=== PATIENT | female | born 1990 | race Caucasian/White ===

== ENCOUNTER 2022-11-14 06:00 | Inpatient (IN) | payer OTHER ==
[2022-11-14 06:30] LABS: Glucose,Whole Blood 123 mg/dL (70-110)
[2022-11-14] MEDS ORDERED: miSOPROStoL 200 MCG TAB PO PRN (06:33)
[2022-11-14] MEDS ORDERED: TRANEXAMIC 1,000 MG/100ML-NACL 1,000 MG in EMPTY BAG 1 BAG IV PRN (06:33)
[2022-11-14] MEDS ORDERED: CARBOPROST TROMETHAMINE 250 MCG/ML 1 ML AMP IM PRN (06:33)
[2022-11-14] MEDS ORDERED: OXYTOCIN 10 UNIT/ML 1 ML VIAL IM PRN (06:33)
[2022-11-14] MEDS ORDERED: LIDOCAINE 0.5% (PF) 5 MG/ML (50 ML SDV) SQ PRN (06:33)
[2022-11-14] MEDS ORDERED: TERBUTALINE 1 MG/ML VIAL SQ PRN (06:33)
[2022-11-14] MEDS ORDERED: METHYLERGONOVINE 0.2 MG/ML 1 ML AMP IM PRN (06:33)
[2022-11-14] MEDS: OXYTOCIN 30 UNITS/500 ML NS 30 UNIT in SALINE 1 500ML.BAG IV SCH (06:59)
[2022-11-14 07:00] LABS: Basophils % (A) 0 %; Eosinophils # (A) 0.2 k/uL (0-0.7); Eosinophils % (A) 2 %; HCT 35.3 % (34.0-46.0); HGB 12.3 gm/dL (11.4-16.0); Lymphocytes # (A) 2.6 k/uL (1.0-4.8); Lymphocytes % (A) 23 %; MCH 33.3 pg (25.0-35.0); MCHC 34.8 g/dL (31.0-37.0); MCV 95.8 fL (80.0-100.0); Mean Platelet Volume 8.1; Monocytes # (A) 0.7 k/uL (0-1.0); Monocytes % (A) 6 %; Neutrophils # (A) 7.8 k/uL (1.3-7.7); Neutrophils % (A) 68 %; Platelet Count 264 k/uL (150-450); RBC 3.68 m/uL (3.80-5.40); RDW 13.8 % (11.5-15.5); WBC 11.5 k/uL (3.8-10.6)
[2022-11-14] MEDS: LACTATED RINGERS 1,000 ML IV SCH ×3 (07:00→13:24)
--- NOTE | 2022-11-14 08:40 | P.HPOB ---
History of Present Illness H&P Date: 11/14/22 Chief Complaint: medical induction of labor for diet-controlled gestational diabetes This is a 32 year old G1P-0 at 40 weeks and 2 days (with EDC of 11/12/2022 by LMP c/w 6 weeks US) presenting to L&D for medical induction of labor for diet- controlled gestational diabetes. Blood sugars during the have been very well controlled with diet. Growth ultrasound at 33 weeks showed the fetus measuring in the 72%ile for gestational age. Maternal serologies: blood type A positive, antibody screen negative, rubella immune, VDRL non-reactive, HBsAg negative, HIV negative, GBS negative. Past Medical History Additional Past Medical History / Comment(s): heart murmur, IBS History of Any Multi-Drug Resistant Organisms: None Reported Additional Past Surgical History / Comment(s): Colonoscopy Past Anesthesia/Blood Transfusion Reactions: No Reported Reaction Past Psychological History: Anxiety Smoking Status: Never smoker Past Alcohol Use History: None Reported Past Drug Use History: None Reported - Past Family History Mother Family Medical History: No Reported History Medications and Allergies Home Medications Medication Instructions Recorded Confirmed Type Acetaminophen Tab [Tylenol Tab] 1,000 mg PO Q6HR PRN 11/14/22 11/14/22 History Aspirin 81 mg PO DAILY 11/14/22 11/14/22 History Ferrous Sulfate [Iron (65 MG 85 mg PO DAILY 11/14/22 11/14/22 History Elemental)] Vit No.179/Iron/Folic 1 each PO DAILY 11/14/22 11/14/22 History [ Tablet] Sennosides [Senokot] 8.6 mg PO DAILY 11/14/22 11/14/22 History Allergies Allergy/AdvReac Type Severity Reaction Status Date / Time dicyclomine Allergy Nausea & Verified 11/14/22 06:28 Vomiting & Diarrhea Exam Vital Signs Temp Pulse Resp BP Pulse Ox 11/14/22 06:44 98.5 F 124 H 16 133/71 97 Intake and Output 11/13/22 11/14/22 11/14/22 22:59 06:59 14:59 Other: Weight 68.946 kg Focused physical exam is performed. This is a healthy-appearing in no apparent distress. Abdomen is gravid and non-tender. Cervical exam is 2-3 centimeters dilated, 60% effaced, and -2 station. AROM is undertaken with clear fluid noted. Extremities are non-tender and non-edematous. heart tones are Category I with 6 IUs of pitocin running and tocometer shows contractions every 2-3 minutes. Results Result Diagrams: 11/14/22 06:42 Abnormal Lab Results - Last 24 Hours (Table) 11/14/22 11/14/22 Range/Units 06:29 06:42 WBC 11.5 H (3.8-10.6) k/uL RBC 3.68 L (3.80-5.40) m/uL Neutrophils # 7.8 H (1.3-7.7) k/uL POC Glucose (mg/dL) 123 H (70-110) mg/dL Assessment and Plan Assessment: 32 year old at 40 weeks and 2 days presenting for mIOL for GDMA1 Plan: NPO, mIVF, POC glucose in 4 hours (first 123), s/p AROM, oxytocin per protocol, epidural prn, continuous EFM, close monitoring of patient. Time with Patient: Less than 30
[2022-11-14] MEDS ORDERED: HYDROmorphone 1 MG/ML 1 ML SYRINGE IVP PRN (09:21)
[2022-11-14 10:19] LABS: Glucose,Whole Blood 103 mg/dL (70-110)
[2022-11-14] MEDS ORDERED: ONDANSETRON 4 MG/2 ML VIAL ONE (12:00)
[2022-11-14] MEDS ORDERED: OXYTOCIN 30 UNITS/500 ML NS BAG IV ONE (12:00)
[2022-11-14] MEDS ORDERED: fentaNYL (PF) 50 MCG/ML 2 ML AMP ONE (12:00)
[2022-11-14] MEDS ORDERED: ROPIVACAINE 5 MG/ML 20 ML AMPULE ONE (12:00)
[2022-11-14] MEDS ORDERED: SODIUM CHLORIDE 0.9% 100 ML BAG ONE (12:00)
[2022-11-14] MEDS ORDERED: KETOROLAC 15 MG/ML 1 ML VIAL ONE (12:00)
[2022-11-14] MEDS ORDERED: fentaNYL (PF) 50 MCG/ML 5 ML AMP ONE (12:00)
[2022-11-14] MEDS ORDERED: MORPHINE SULFATE (PF) 0.3 MG/0.3 ML SYR ONE (12:00)
[2022-11-14] MEDS ORDERED: LIDOCAINE 2% INJ 20 MG/ML (2 ML VIAL) ONE (12:00)
[2022-11-14] MEDS ORDERED: ROPIVACAINE 225 MG, fentaNYL (PF). 450 MCG in SODIUM CHLORIDE 0.9% 171 ML EPIDURAL ONE (20:30)
[2022-11-14] MEDS ORDERED: AZITHROMYCIN 500 MG in SODIUM CHLORIDE 0.9% 250 ML IVPB STA (22:35)
[2022-11-14] MEDS ORDERED: CITRIC ACID-SODIUM CITRATE 15 ML CUP PO ONE (22:45)
[2022-11-15] MEDS: OXYTOCIN 30 UNITS/500 ML NS 30 UNIT in SALINE 1 500ML.BAG IV SCH
[2022-11-15] MEDS ORDERED: diphenhydrAMINE 25 MG CAP PO PRN (00:17)
[2022-11-15] MEDS ORDERED: NALOXONE 0.4 MG/ML 1 ML VIAL IV PRN (00:17)
[2022-11-15] MEDS ORDERED: LANOLIN CREAM 5 GM TUBE TOPICAL PRN (00:17)
[2022-11-15] MEDS ORDERED: ONDANSETRON 4 MG/2 ML VIAL IVP PRN (00:17)
[2022-11-15] MEDS ORDERED: SIMETHICONE 80 MG CHEWABLE PO PRN (00:17)
[2022-11-15] MEDS ORDERED: ZOLPIDEM 5 MG TAB PO PRN (00:17)
[2022-11-15] MEDS ORDERED: METOCLOPRAMIDE 5 MG/ML 2 ML VIAL IVP PRN (00:17)
[2022-11-15] MEDS ORDERED: diphenhydrAMINE 50 MG CAP PO PRN (00:17)
[2022-11-15] MEDS ORDERED: diphenhydrAMINE 50 MG/ML 1 ML VIAL IVP PRN ×2 (00:17)
--- NOTE | 2022-11-15 00:17 | P.OP ---
Date of Procedure: 11/15/22 Preoperative Diagnosis: 1. Term IUP at 40 weeks 2. Arrest of Descent 3. Diet-controlled gestational diabetes Postoperative Diagnosis: 1. Term IUP at 40 weeks 2. Arrest of Descent 3. Diet-controlled gestational diabetes 4. Direct Occiput Posterior Presentation 5. True Knot in Umbilical Cord Procedure(s) Performed: Primary Lower Transverse Section Implants: None Anesthesia: epidural Surgeon: Bev Conti Tablet Tester #1: Haylee Parrish Estimated Blood Loss (ml): 780 IV fluids (ml): 1,200 Urine output (ml): 100 (cleveland-colored) Pathology: none sent Condition: stable Disposition: floor Indications for Procedure: This is a 32 year old at 40 weeks being medically induced for diet- controlled gestational hypertension. The patient made good progress in cervical dilation with pitocin induction and artifical rupture of membranes. She received epidural anesthesia per her request. She progressed to complete dilation and began pushing. Quickly after beginning to push, it was noted that she was not pushing forcefully and could not feel where to push. Her epidural was paused at this time and allowed to wear off. She continued to push for 3 hours. The fetus intermittent variable decelerations during the second stage of labor with good recovery to the baseline. Arrest of descent was diagnosed at this time despite good maternal efforts. section was recommended to the patient for and maternal well-being. The risks of section were discussed with the patient including risk of bleeding, infection, and damage to surrounding struct ures including bladder/bowel/ureters. The patient understood these risks and desired to proceed. Operative Findings: Viable male infant in direct occiput posterior presentation. Apgars 6/9/9. Weight 8#4oz. Normal uterus, bilateral fallopian tubes, and ovaries. Description of Procedure: The patient was taken to the operating room where epidural anesthesia was found to be adequate. The vagina was prepared. A pillow was placed with 180 mL of normal saline inserted into the balloon to gently elevated the head. 2 grams of Ancef and 500 mg of Azithromycin were given for infection prophylaxis. She was prepared and draped in the dorsal supine position with a leftward tilt. A Pfannenstiel skin incision was made with the scalpel. The incision was carried down to the fascia. The fascia was incised and extended laterally with Fu scissors. The superior aspect of the fascia was grasped with Roman clamps. The underlying rectus muscle was dissected off sharply with Fu scissors. In a similar fashion, the inferior aspect of the fascia was elevated with Roman clamps and the rectus muscle and pyramidalis were dissected off. Excellent hemostasis was achieved with the bovie. The rectus muscle was in the midline down to the level of the pubic symphysis. Pre-peritoneal fatty tissue was bluntly dissected to expose the peritoneum. The peritoneum was found to be free of adherent bowel and entered sharply with Fu scissors. The peritoneal incision was extended superiorly and inferiorly to the bladder reflection with good visualization of the bladder. The bladder blade was inserted and vesicouterine peritoneum was identified. Intraabdominal survey revealed scant, clear peritoneal fluid and the thinned-out lower uterine segment. The vesicouterine peritoneum was opened with scissors and the bladder flap was developed. The bladder blade was repositioned to keep the bladder out of the operative field. The lower uterine segment was incised with a scalpel. The uterine incision was extended bluntly with lateral and upward traction. Clear amniotic fluid was noted. The fetus was in direct occiput posterior position. The head was elevated out of the pelvis with special attention paid to avoid using the uterine incision as a fulcrum. Gentle fundal pressure was applied once the head was brought into the incision. The infant was delivered with no difficulty. The mouth and nose were suctioned with a bulb. The cord was clamped and cut. The infant was handed off to the grounds keeper. IV oxytocin was initiated to facilitate uterine contractions. The placenta was delivered intact with manual massage of uterine fundus. The uterus was then exteriorized and the inside of the uterus was gently wiped with a lap sponge to assure complete removal of placental membranes. The uterine incision was closed with a 0-Vicryl suture in a running locked fashion. A second imbricating layer with 0-Vicryl was placed along with additional [id number] sutures with 0-Vicryl to achieve hemostasis. The ovaries and tubes were found to be normal. The uterus, tubes, and ovaries were then gently returned to the abdominal cavity. The blood clots and fluid were wiped out of the abdomen and pelvis with moist laparotomy sponges. The uterine incision was reinspected and excellent hemostasis was noted. The fascial layer was closed with a 0-Vicryl suture. The subcutaneous layer was reapproximated with 2-0 Plain Gut. The skin was closed with 4-0 Monocryl in a subcuticular fashion. The patient tolerated the procedure well. All the counts were correct times two. The patient was taken to the recovery room in a stable condition.
[2022-11-15] MEDS: LACTATED RINGERS 1,000 ML IV SCH ×5 (00:47→18:14)
[2022-11-15] MEDS: ACETAMINOPHEN TAB 500 MG TAB PO SCH ×3 (04:45→15:15)
--- NOTE | 2022-11-15 06:16 | P.PN ---
Progress Note - Text 11/15/22 601am 32-year-old female status post with Duramorph why the epidural catheter. Patient seen and evaluated for postop pain control she has a VAS of 4 with no complains of nausea vomiting or pruritus. Patient doing very well
[2022-11-15] MEDS: KETOROLAC 15 MG/ML 1 ML VIAL IVP SCH ×3 (06:17→19:54)
[2022-11-15] MEDS: SENNOSIDES-DOCUSATE SODIUM 1 EACH TAB PO SCH ×2 (09:33→19:55)
--- NOTE | 2022-11-15 10:00 | P.PNOBGPC ---
Subjective - Subjective Principal diagnosis: s/p primary section Interval history: The patient is doing well this morning and had no acute events overnight. She has no complaints this morning. Pain is well controlled. She reports minimal lochia, passing flatus, ambulating, and eating/drinking without nausea or vomiting. Still awaiting void s/p catheter removal. She is her infant without difficulty. She denies chest pain, shortness of breathing, fevers, or chills overnight. She denies pain or swelling in the legs. Patient reports: Reports appetite normal, Reports pain well controlled, Reports ambulating normally [place]: doing well, nursing well Objective - Vital Signs Latest vital signs: Vital Signs Temp Pulse Resp BP Pulse Ox 11/15/22 08:00 97.8 F 75 16 109/66 96 11/15/22 02:16 98 18 143/72 95 11/15/22 01:46 85 18 107/59 98 11/15/22 01:16 92 18 143/72 94 L 11/15/22 01:01 97 18 115/59 94 L 11/15/22 00:46 101 H 16 122/61 95 11/15/22 00:31 93 18 124/60 99 11/15/22 00:16 97.6 F 84 18 123/58 96 Intake and Output 11/14/22 11/15/22 11/15/22 22:59 06:59 14:59 Intake Total 32.767 Output Total 250 1430 150 Balance -250 -1397.233 -150 Intake: Intake, IV Titration 32.767 Amount Oxytocin 30 Units/500 ml 32.767 Ns 30 unit In Saline 1 500ml.bag @ Per Protocol IV .Q0M [facility] Rx#:[id number] Output: Urine 250 450 150 Uretheral (Skinner) 150 Output, Quantitative 980 Blood Loss Other: Voiding Method Indwelling Catheter - Exam Extremities: Present: normal Abdomen: Present: normal appearance, soft Incision: Present: normal, dressed Uterus: Present: normal, firm Assessment and Plan Assessment: 32 year old now POD#1 s/p 1LTCS 2/2 AOD Plan: Patient meeting postoperative milestones appropriately. Continue to monitor. Anticipate discharge home tomorrow.
[2022-11-16] MEDS: KETOROLAC 15 MG/ML 1 ML VIAL IVP SCH (00:03)
[2022-11-16] MEDS: ACETAMINOPHEN TAB 500 MG TAB PO SCH ×3 (00:04→18:22)
[2022-11-16] MEDS: LACTATED RINGERS 1,000 ML IV SCH (02:16)
[2022-11-16] MEDS: IBUPROFEN 600 MG TAB PO SCH ×3 (04:21→18:28)
[2022-11-16 07:18] LABS: Basophils % (A) 0 %; Eosinophils # (A) 0.1 k/uL (0-0.7); Eosinophils % (A) 1 %; HCT 25.7 % (34.0-46.0); Lymphocytes # (A) 1.7 k/uL (1.0-4.8); Lymphocytes % (A) 11 %; MCH 32.3 pg (25.0-35.0); MCHC 33.5 g/dL (31.0-37.0); MCV 96.2 fL (80.0-100.0); Mean Platelet Volume 8.2; Monocytes # (A) 0.7 k/uL (0-1.0); Monocytes % (A) 5 %; Neutrophils % (A) 82 %; Platelet Count 193 k/uL (150-450); RBC 2.67 m/uL (3.80-5.40); RDW 14.4 % (11.5-15.5); WBC 14.7 k/uL (3.8-10.6)
[2022-11-16 07:35] LABS: HGB 8.6 gm/dL (11.4-16.0)
[2022-11-16 08:49] VITALS: RESP 15
[2022-11-16] MEDS: SENNOSIDES-DOCUSATE SODIUM 1 EACH TAB PO SCH (08:49)
--- NOTE | 2022-11-16 09:07 | P.PNOBGPC ---
Subjective - Subjective Principal diagnosis: s/p primary section Interval history: The patient is doing well this morning and had no acute events overnight. She has no complaints this morning. She reports minimal lochia, passing flatus, voiding without difficulty, ambulating without lightheadedness, and eating/drinking without nausea or vomiting. She is her without difficulty. She denies chest pain, shortness of breathing, fevers, or chills overnight. She denies pain or swelling in the legs. Patient reports: Reports appetite normal, Reports voiding normally, Reports pain well controlled, Reports ambulating normally : doing well, nursing well Objective - Vital Signs Latest vital signs: Vital Signs Temp Pulse Resp BP Pulse Ox 11/16/22 08:00 97 F L 76 15 110/73 11/16/22 04:00 98.1 F 74 16 120/74 11/16/22 00:00 98.4 F 88 16 100/70 11/15/22 20:00 98.4 F 88 18 110/69 11/15/22 15:30 97.0 F L 88 16 107/68 96 11/15/22 12:00 97.6 F 86 16 104/69 96 Intake and Output 11/15/22 11/16/22 11/16/22 22:59 06:59 14:59 Output Total 200 Balance -200 Output: Urine 200 Other: # Voids 2 - Exam Extremities: Present: normal Abdomen: Present: normal appearance, soft Incision: Present: normal, dressed (paitent at the time of exam. Will examine the incision prior to discharge.) Uterus: Present: normal, firm - Labs Labs: Abnormal Lab Results - Last 24 Hours (Table) 11/16/22 Range/Units 06:19 WBC 14.7 H (3.8-10.6) k/uL RBC 2.67 L (3.80-5.40) m/uL Hgb 8.6 L D (11.4-16.0) gm/dL Hct 25.7 L (34.0-46.0) % Neutrophils # 12.0 H (1.3-7.7) k/uL Assessment and Plan Assessment: 32 year old now POD#2 s/p 1LTCS 2/2 AOD Plan: Patient meeting postoperative milestones appropriately. Continue to monitor. Anticipate discharge home this afternoon. Will circumcise infant soon. R/b/a to circumcision reviewed with the patient.
--- NOTE | 2022-11-16 14:08 | P.DS ---
Providers Date of admission: 11/14/22 06:00 Expected date of discharge: 11/16/22 Attending physician: Bev Conti MD Primary care physician: Stated None Hospital Course: This is a 32 year old now POD#2 s/p 1LTCS 2/2 arrest of descent. The patient is doing well this morning and had no acute events overnight. She has no complaints this morning. She desires discharge home today. She reports minimal lochia, passing flatus, voiding without difficulty, ambulating, and eating/drinking without nausea or vomiting. Infant doing well at bedside, s/p circumcision. She denies chest pain, shortness of breathing, fevers, or chills overnight. She denies pain or swelling in the legs. Postoperative restrictions are reviewed with the patient including pelvic rest for 6 weeks, no lifting heavier than 15 pounds for 6 weeks. The patient is encouraged to call the office if she experiences any heavy bleeding, foul-smelling discharge, breast complaints, or any if she has any other concerns. She will follow up in the office with in 2 weeks for postoperative exam. All questions are answered. Assessment: 32 year old now POD#2 s/p 1LTCS 2/2 AOD Patient Condition at Discharge: Good Plan - Discharge Summary Discharge Rx Participant: No New Discharge Prescriptions: New polyethylene glycoL 3350 [Miralax] 17 gm PO DAILY PRN #527 gm PRN Reason: Constipation oxyCODONE HCL [Roxicodone] 5 mg PO Q6HR PRN 3 Days #12 tab PRN Reason: Breakthrough Pain Acetaminophen Tab [Tylenol] 650 mg PO Q6H PRN #30 tab PRN Reason: Mild Pain (Scale 1 To 3) Ibuprofen [Motrin] 600 mg PO Q6HR PRN #30 tab PRN Reason: Mild Pain (Scale 1 To 3) No Action Acetaminophen Tab [Tylenol Tab] 1,000 mg PO Q6HR PRN PRN Reason: Pain Aspirin 81 mg PO DAILY Ferrous Sulfate [Iron (65 MG Elemental)] 85 mg PO DAILY Sennosides [Senokot] 8.6 mg PO DAILY Vit No.179/Iron/Folic [ Tablet] 1 each PO DAILY Discharge Medication List Acetaminophen Tab [Tylenol Tab] 1,000 mg PO Q6HR PRN 11/14/22 [History] Aspirin 81 mg PO DAILY 11/14/22 [History] Ferrous Sulfate [Iron (65 MG Elemental)] 85 mg PO DAILY 11/14/22 [History] Vit No.179/Iron/Folic [ Tablet] 1 each PO DAILY 11/14/22 [History] Sennosides [Senokot] 8.6 mg PO DAILY 11/14/22 [History] Acetaminophen Tab [Tylenol] 650 mg PO Q6H PRN #30 tab 11/16/22 [Rx] Ibuprofen [Motrin] 600 mg PO Q6HR PRN #30 tab 11/16/22 [Rx] oxyCODONE HCL [Roxicodone] 5 mg PO Q6HR PRN 3 Days #12 tab 11/16/22 [Rx] polyethylene glycoL 3350 [Miralax] 17 gm PO DAILY PRN #527 gm 11/16/22 [Rx] Follow up Appointment(s)/Referral(s): Bev Conti MD [STAFF PHYSICIAN] - 2 Weeks Patient Instructions/Handouts: (DC), Depression (DC), Perineal Care (DC), Bleeding (DC), How to Increase Your Milk Supply (DC), How to Tell if Your Baby is Getting Enough Breast Milk (DC) Activity/Diet/Wound Care/Special Instructions: Pelvic rest for 6 weeks. No heavy lifting for 6 weeks. Discharge Disposition: HOME SELF-CARE
[2022-11-16 18:27] VITALS: BP 122/72; PULSE 96; TEMP 97.8
== END 2022-11-16 18:28 | disposition home or self-care (01) | DRG 788 ==
LOC: 4FBP 06:00
PROVIDERS: ADMIT Obstetrics & Gynecology; ATTEND Obstetrics & Gynecology
PROC: 10907ZC Drainage of Amniotic Fluid, Therapeutic from Products of Conception, Via Natural or Artificial Opening (ICD-10-PCS; principal; 2022-11-14 23:00)
PROC: 3E033VJ Introduction of Other Hormone into Peripheral Vein, Percutaneous Approach (ICD-10-PCS; principal; 2022-11-14 23:00)
PROC: 10D00Z1 Extraction of Products of Conception, Low, Open Approach (ICD-10-PCS; principal; 2022-11-14 23:00)
DX: O24.420 Gestational diabetes mellitus in childbirth, diet controlled (principal); O48.0 Post-term pregnancy; O76 Abnormality in fetal heart rate and rhythm complicating labor and delivery; O62.1 Secondary uterine inertia; O99.62 Diseases of the digestive system complicating childbirth; O64.0XX0 Obstructed labor due to incomplete rotation of fetal head, not applicable or unspecified; O69.2XX0 Labor and delivery complicated by other cord entanglement, with compression, not applicable or unspecified; K58.9 Irritable bowel syndrome, unspecified; O99.344 Other mental disorders complicating childbirth; F41.9 Anxiety disorder, unspecified; Z28.310 Unvaccinated for COVID-19; Z79.82 Long term (current) use of aspirin; Z88.3 Allergy status to other anti-infective agents; Z3A.40 40 weeks gestation of pregnancy; Z37.0 Single live birth
CPT/HCPCS: 83036; 85025; 86850; 86900; 86901